=== PATIENT | male | born 1940 | race Caucasian/White ===

== ENCOUNTER → 2017-02-14 | Outpatient (CLI) | payer BC ==
[~2017-02-14] MED LIST: ASPI81TA28 PO; ATEN-173 PO; ATOR10TA82 PO; LEVO100T7 PO
== END | disposition home or self-care (01) ==
LOC: C.LABFOXMH 08:21
PROVIDERS: ATTEND Internal Medicine
DX: E03.9 Hypothyroidism, unspecified (principal); N62 Hypertrophy of breast

== ENCOUNTER → 2017-06-25 | Outpatient (CLI) | payer BC ==
[~2017-06-25] MED LIST changes: -ATOR10TA82 PO; +ATOR10TA88 PO
[2017-06-25 09:10] LABS: BLOOD UREA NITROGEN 13 mg/dl (7-18); CARBON DIOXIDE 23 mmol/L (21-32); CHLORIDE 106 mmol/L (98-107); CHOLESTEROL 144 mg/dl (0-200); CREATININE 0.88 mg/dl (0.60-1.40); GLUCOSE 97 mg/dl (70-99); POTASSIUM 4.3 mmol/L (3.5-5.1); SODIUM 138 mmol/L (136-145); TRIGLYCERIDES 111 mg/dl (0-150); VERY LOW DENSITY LIPOPROT CALC 22 mg/dl
[2017-06-25 09:14] LABS: ALB/GLOB RATIO 1.1 (0.9-2); ALKALINE PHOSPHATASE 74 U/L (45-117); ALT/SGPT 32 U/L (12-78); AST/SGOT 20 U/L (15-37); CHOLESTEROL/HDL RATIO 2.8; HDL CHOLESTEROL 52 mg/dl; LDL CHOLESTEROL CALCULATED 70 mg/dl
== END | disposition home or self-care (01) ==
LOC: C.LABFOXMH 08:40
PROVIDERS: ATTEND Internal Medicine
DX: E78.00 Pure hypercholesterolemia, unspecified (principal)

== ENCOUNTER → 2018-01-02 | Outpatient (CLI) | payer BC ==
[~2018-01-02] MED LIST changes: +ATOR10TA82 PO; -ATOR10TA88 PO
== END | disposition home or self-care (01) ==
LOC: C.LABFOXMH 07:46
PROVIDERS: ATTEND Internal Medicine Cardiovascular Disease
DX: E78.5 Hyperlipidemia, unspecified (principal)

== ENCOUNTER 2023-05-25 14:41 | Inpatient (IN) ==
--- NOTE | 2023-05-25 15:04 | Emergency Department Note ---
History of Present Illness General Chief complaint: Urinary Symptoms Stated complaint: URINARY SYMPTONS Time Seen by Provider: 05/25/23 14:48 History of Present Illness 83-year-old male presents emergency department complaint of possible urinary retention. Patient reportedly self catheterizes him and is having difficulty doing such today. There may be a slight fever reported and mild confusion. Patient is hard of hearing patient denies any suprapubic tenderness. Patient denies nausea vomiting diarrhea. There are no other complaints. No other mitigating or alleviating factors Home Medications Medication Instructions Recorded Confirmed Type atenolol 25 mg tablet 25 mg PO QPM 09/29/19 05/25/23 History atorvastatin 10 mg tablet 10 mg PO QPM 09/29/19 05/25/23 History cholecalciferol (vitamin D3) 50 2,000 units PO QPM 09/29/19 05/25/23 History mcg (2,000 unit) tablet levothyroxine 100 mcg tablet 100 mcg PO DAILYBB 09/29/19 05/25/23 History nitroglycerin 0.4 mg sublingual 0.4 mg sublingual Q5M PRN Chest 09/29/19 05/25/23 History tablet Pain aspirin 81 mg tablet,delayed 81 mg PO QPM 10/04/21 05/25/23 History release ferrous sulfate 325 mg (65 mg 325 mg PO QPM 10/04/21 05/25/23 History iron) tablet ascorbic acid (vitamin C) 500 mg 1,000 mg PO DAILY 08/09/22 05/25/23 History tablet vitamin B complex 1 tab PO DAILY 01/25/23 05/25/23 History Allergies Allergy/AdvReac Type Severity Reaction Status Date / Time Penicillins Allergy Severe High Temp Verified 05/25/23 17:44 sulfamethoxazole Allergy Intermediate RASH Verified 05/25/23 17:44 trimethoprim Allergy Intermediate RASH Verified 05/16/23 11:14 streptomycin Allergy Unknown CAN'T Verified 05/25/23 17:44 REMEMBER procaine [From Novocain] AdvReac Intermediate HIGH TEMP Verified 05/16/23 11:14 ciprofloxacin [From Cipro] AdvReac Mild Rash Verified 05/16/23 11:14 Past Med/Surg History Medical History Aortic valve insufficiency Ascending aorta dilatation Benign prostatic hyperplasia (BPH) with urinary urgency CAD (coronary artery disease) follows with Dr. Campos History of kidney stones [place] (hard of hearing) pt is VERY [place] and has great difficulty answering questions over the phone Hypertension Hypothyroidism Mixed conductive and sensorineural hearing loss of right ear with restricted hearing of left ear Surgical History History of lithotripsy History of open reduction and internal fixation (ORIF) procedure left leg History of removal of retained hardware Hx of heart artery stent 10/2001 with 1 stent placed--at [facility] Family History Father Heart disease Social History Smoking Status: Never smoker Second Hand Exposure: No; Do You Dip or Chew Tobacco: No; Hx Alcohol Use: No Hx Substance Use: No Preferred Language: Slovenian Communication Ability: Impaired Communication Ability Comment: very [place], have to yell Medicaid Plan Compliance Director Required: No Beliefs That Will Affect Care: Faith Faith Beliefs: Anglican marital status: Current Living Situation: Alone Current Living Situation Comment: lives independently at [facility] current occupational status: retired Feels Safe at Home: Yes Assistive Devices: Glasses and Hearing Aid - Bilateral Review of Systems A total of 10 systems reviewed and were otherwise negative Physical Exam Vital Signs Vital Signs - 24 hr 05/25/23 14:46 Temperature 36.8 C Temperature Source Oral Pulse Rate 83 Respiratory Rate 18 Blood Pressure 141/71 H Blood Pressure Mean 94 Blood Pressure Position Sitting Pulse Oximetry 94 Oxygen Delivery Method Room Air Sepsis Recent Fever Within 48 Hours No Sepsis New/Unexplained Change in Mental Status No Sepsis Action Taken by Nursing No Action Required GENERAL: Patient is awake alert in no acute distress patient is resting comfortably and showing no signs of anxiety; patient is hard of hearing EYES: The conjunctivae are clear. The pupils are round and reactive. HEAD NC/AT EARS, NOSE, MOUTH AND THROAT: The nose is without any evidence of any deformity. Mucous membranes are moist. Tongue is midline. NECK: The neck is nontender and supple. RESPIRATORY: Normal respiratory effort is noted there is no evidence of wheezing rhonchi or rales CARDIOVASCULAR: Regular rate and rhythm noted there no murmurs rubs or gallops normal S1 normal S2. GASTROINTESTINAL: The abdomen is soft. Abdomen is nontender. No suprapubic tenderness exam with nurse at bedside the bladder scan was 108 mL BACK: No midline tenderness or or step-off noted range of motion in flexion extension as well as rotation no signs of muscle spasm noted MUSCULOSKELETAL/EXTREMITIES: There is no evidence of gross deformity full range of motion is noted in the hips and shoulders. SKIN: There is no obvious evidence of any rash. There are no petechiae, pallor or cyanosis noted. NEUROLOGIC: Patient is awake alert and oriented x3 strength is symmetric Course Reevaluation(s) Reevaluation #1: Patient was started on IV fluids, IV Rocephin. Time: 17:59 Consultations Consultation #1: [facility] with the [facility] Time: 17:00 Administered Medications Parenteral Electrolytes (Plasma-Lyte A Ph 7.4) 1,000 mls @ 100 mls/hr IV .Q10H DOMINGO Stop: 05/26/23 02:14 Last Admin: 05/25/23 16:47 Dose: 100 mls/hr Documented By: CHAZ Discontinued Medications Acetaminophen (Acetaminophen 325 Mg Tab) 650 mg PO NOW STA Stop: 05/25/23 16:40 Last Admin: 05/25/23 16:48 Dose: Not Given Documented By: CHAZ Ceftriaxone Sodium (Rocephin) 2,000 mg in 70 mls @ 140 mls/hr IV NOW STA Stop: 05/25/23 16:27 Last Infusion: 05/25/23 16:50 Dose: 0 mls/hr Documented By: Admin: 05/25/23 16:21 Dose: 140 mls/hr Documented By: CHAZ Medical Decision Making Medical Records Attestation: I reviewed the patient's medical records. Home Medications Current Medication List: was personally reviewed by me Laboratory Data Attestation: I reviewed the patient's lab results. Labs interpreted by me patient has a leukocytosis, patient has a urine that is positive for infection 05/25/23 15:09 05/25/23 15:09 Lab Results 05/25/23 05/25/23 05/25/23 Range/Units 15:09 15:09 15:09 WBC 19.94 H (4.8-10.8) K/ul RBC 4.49 L (4.70-6.10) M/uL Hgb 14.5 (14.0-18.0) g/dl Hct 41.6 L (42.0-52.0) % MCV 92.7 (80.0-100.0) fL MCH 32.3 (25.0-34.0) pg MCHC 34.9 (32.0-36.0) g/dL RDW Std Deviation 42.0 (36.4-46.3) fL RDW Coeff of Chris 12.3 (11.5-14.5) % Plt Count 328 (130-400) K/uL MPV 8.4 L (9.4-12.4) fL Immature Gran % (Auto) 0.8 % Neut % (Auto) 89.8 % Lymph % (Auto) 4.2 % [place] % (Auto) 4.9 % Eos % (Auto) 0.0 % Baso % (Auto) 0.3 % Neut # (Auto) 17.93 H (1.40-6.50) K/uL Lymph # (Auto) 0.84 L (1.20-3.40) K/uL [place] # (Auto) 0.97 H (0.11-0.59) K/uL Eos # (Auto) 0.00 (0.00-0.50) K/uL Baso # (Auto) 0.05 (0.00-0.20) K/uL Immature Gran # (Auto) 0.15 (0.01-0.20) K/uL Sodium 131 L (136-145) mmol/L Potassium 3.9 (3.5-5.1) mmol/L Chloride 99 (98-107) mmol/L Carbon Dioxide 25 (21-32) mmol/L Anion Gap 7 (3-11) BUN 16 (6-23) mg/dl Creatinine 1.00 (0.6-1.4) mg/dl Est Cr Clr Drug Dosing Not Reportable Est GFR ( Amer) 79.2 ml/min Est GFR (Non-Af Amer) 68.3 ml/min BUN/Creatinine Ratio 16.0 (10-20) Glucose 122 H (70-99(Fasting)) mg/dl Lactate (0.4-2.0) mmol/L Calcium 9.2 (8.6-10.3) mg/dl Magnesium 2.0 (1.7-2.4) mg/dl Total Bilirubin 0.8 (0.2-1.0) mg/dl Direct Bilirubin 0.1 (0-0.2) mg/dl AST 18 (13-39) U/L ALT 22 (7-52) U/L Alkaline Phosphatase 69 (34-104) U/L Total Protein 7.6 (6.0-8.3) gm/dl Albumin 3.9 (3.4-5.0) gm/dl Procalcitonin 0.09 (0-0.5) ng/ml 05/25/23 Range/Units 15:23 WBC (4.8-10.8) K/ul RBC (4.70-6.10) M/uL Hgb (14.0-18.0) g/dl Hct (42.0-52.0) % MCV (80.0-100.0) fL MCH (25.0-34.0) pg MCHC (32.0-36.0) g/dL RDW Std Deviation (36.4-46.3) fL RDW Coeff of Chris (11.5-14.5) % Plt Count (130-400) K/uL MPV (9.4-12.4) fL Immature Gran % (Auto) % Neut % (Auto) % Lymph % (Auto) % [place] % (Auto) % Eos % (Auto) % Baso % (Auto) % Neut # (Auto) (1.40-6.50) K/uL Lymph # (Auto) (1.20-3.40) K/uL [place] # (Auto) (0.11-0.59) K/uL Eos # (Auto) (0.00-0.50) K/uL Baso # (Auto) (0.00-0.20) K/uL Immature Gran # (Auto) (0.01-0.20) K/uL Sodium (136-145) mmol/L Potassium (3.5-5.1) mmol/L Chloride (98-107) mmol/L Carbon Dioxide (21-32) mmol/L Anion Gap (3-11) BUN (6-23) mg/dl Creatinine (0.6-1.4) mg/dl Est Cr Clr Drug Dosing Est GFR ( Amer) ml/min Est GFR (Non-Af Amer) ml/min BUN/Creatinine Ratio (10-20) Glucose (70-99(Fasting)) mg/dl Lactate 2.0 (0.4-2.0) mmol/L Calcium (8.6-10.3) mg/dl Magnesium (1.7-2.4) mg/dl Total Bilirubin (0.2-1.0) mg/dl Direct Bilirubin (0-0.2) mg/dl AST (13-39) U/L ALT (7-52) U/L Alkaline Phosphatase (34-104) U/L Total Protein (6.0-8.3) gm/dl Albumin (3.4-5.0) gm/dl Procalcitonin (0-0.5) ng/ml Imaging Data Attestation: I personally reviewed and interpreted this imaging study as follows: My Impression: Chest x-ray interpreted by me negative for infiltrate Radiologist's Impression: Chest X-Ray 05/25/23 14:48 XR chest 1V portable HISTORY: 83 years-old Male Sepsis acute sepsis COMPARISON: 04/18/2023 TECHNIQUE: AP view chest FINDINGS: Cardiac silhouette is enlarged. Hiatal hernia. No pneumothorax, pleural effusion, airspace consolidation or pulmonary edema. Emphysema with chronic interstitial coarsening. Degenerative changes of the shoulders and spine. Eventration of the right hemidiaphragm. IMPRESSION: 1. Cardiomegaly without acute process. 2. Hiatal hernia. ACT 112: Negative or not required by law. The above report was generated using voice recognition software. It may contain grammatical, syntax or spelling errors. Electronically signed by: Iam Dainel M.D. 05/25/2023 3:42 PM ECG Data Attestation: I personally reviewed and interpreted this ECG as follows: Additional Comments: EKG interpreted by me normal sinus rhythm rate of 81, normal intervals normal axis, no obvious ST segment elevation or depression Telemetry was ordered by me interpreted as normal sinus rhythm rate of 81 MDM Narrative Medical decision making differential diagnosis includes urinary tract infection, urinary retention, sepsis, dehydration, electrolyte abnormality Plan is to check labs, bladder scan, sepsis protocol External medical records were reviewed by me Patient was started on IV fluids, IV Rocephin, patient is likely bacteremic due to a urinary tract infection. Patient is not in septic shock at the time of admission Impression & Plan UTI (urinary tract infection), Sepsis Discharge Plan Visit Data Chief Complaint: Urinary Symptoms Stated Complaint: URINARY SYMPTONS ED Provider: Drew Olivas Discharge Problem: UTI (urinary tract infection), Sepsis Patient Disposition: Admitted As Inpatient Discharge Instructions Interventions: ED Discharge Assessment Last Done: 05/25/23 17:06
[2023-05-25 15:33] LABS: Basophils # (auto) 0.05 K/uL (0.00-0.20); Basophils % (auto) 0.3 %; Hematocrit (blood only) 41.6 % (42.0-52.0); Hemoglobin 14.5 g/dl (14.0-18.0); Immature Granulocytes # (auto) 0.15 K/uL (0.01-0.20); Immature Granulocytes % (auto) 0.8 %; Lymphocytes # (auto) 0.84 K/uL (1.20-3.40); Lymphocytes % (auto) 4.2 %; Mean Corpuscular Hemoglobin 32.3 pg (25.0-34.0); Mean Corpuscular Hgb Conc 34.9 g/dL (32.0-36.0); Mean Corpuscular Volume 92.7 fL (80.0-100.0); Mean Platelet Volume 8.4 fL (9.4-12.4); Monocytes # (auto) 0.97 K/uL (0.11-0.59); Monocytes % (auto) 4.9 %; Neutrophils # (auto) 17.93 K/uL (1.40-6.50); Neutrophils % (auto) 89.8 %; Platelet Count 328 K/uL (130-400); RDW Coefficient of Variation 12.3 % (11.5-14.5); Red Blood Count 4.49 M/uL (4.70-6.10); White Blood Count 19.94 K/ul (4.8-10.8)
--- NOTE | 2023-05-25 15:43 | XRay Report ---
XR chest 1V portable HISTORY: 83 years-old Male Sepsis acute sepsis COMPARISON: 04/18/2023 TECHNIQUE: AP view chest FINDINGS: Cardiac silhouette is enlarged. Hiatal hernia. No pneumothorax, pleural effusion, airspace consolidat ion or pulmonary edema. Emphysema with chronic interstitial coarsening. Degenerative changes of the s houlders and spine. Eventration of the right hemidiaphragm. IMPRESSION: 1. Cardiomegaly without acute process. 2. Hiatal hernia. ACT 112: Negative or not required by law. The above report was generated using voice recognition software. It may contain grammatical, syntax o r spelling errors. Electronically signed by: Iam Daniel M.D. 05/25/2023 3:42 PM
[2023-05-25 15:48] LABS: Appearance Urine Turbid (Clear); Bacteria Urine Automated 1+ (Negative); Bilirubin Urine Negative (Negative); Blood Urine 3+ (Negative); Color Urine Yellow; Glucose Urine UA Negative (Negative); Ketones Urine Negative (Negative); Leukocyte Esterase Urine 3+ (Negative); Nitrite Urine Positive (Negative); Protein Urine 1+ (Negative); RBC Urine Automated >30 /hpf (0-4); Specific Gravity Urine 1.017 (1.000-1.030); Urobilinogen Urine Negative (Negative); WBC Urine Automated >30 /hpf (0-5); pH Urine 5.5 (4.5-7.5)
[2023-05-25 15:49] LABS: Alanine Aminotransferase 22 U/L (7-52); Albumin Level 3.9 gm/dl (3.4-5.0); Alkaline Phosphatase 69 U/L (34-104); Anion Gap 7 (3-11); Aspartate Aminotransferase 18 U/L (13-39); Bilirubin Direct 0.1 mg/dl (0-0.2); Bilirubin,Total 0.8 mg/dl (0.2-1.0); Blood Urea Nitrogen 16 mg/dl (6-23); Calcium 9.2 mg/dl (8.6-10.3); Carbon Dioxide 25 mmol/L (21-32); Chloride 99 mmol/L (98-107); Est GFR (African American) 79.2 ml/min; Est GFR (Non-African American) 68.3 ml/min; Glucose 122 mg/dl (70-99(Fasting)); Potassium 3.9 mmol/L (3.5-5.1); Sodium 131 mmol/L (136-145); Total Protein 7.6 gm/dl (6.0-8.3)
[2023-05-25] MEDS ORDERED: cefTRIAXone SODIUM 2,000 MG/70 ML BAG IV STA (15:58)
--- NOTE | 2023-05-25 16:12 | History & Physical Report ---
Date of Service May 25, 2023 Assessment & Plan (1) UTI (urinary tract infection): Plan: -Admit to med/surge -Currently stable and oriented -Has been having ongoing left scrotal/testicle swelling/pain over the past 3 days. -Also experiencing increased difficulty straight cathing and hematuria -UA today appears infected -No hx of resistant UTI's -S/P one dose of ceftriaxone in the ED, will continue this for now -Will give 1L Plasmalyte as he appears dehydrated -Will obtain scrotal US for further evaluation -Monitor urine/blood cultures -SQ lovenox for DVT PPX -HH diet -AM CBC, BMP, Mag (2) Scrotal swelling: Plan: -Left scrotal/testicular swelling, erythema, and tenderness -Patient is high risk for infection due to having to self cath -Continue ceftriaxone for now -Will obtain scrotal US for further evaluation, if abnormal will consult Urology to follow -PRN bladder scans and straight cath -No MANAS at this time, will hold additional imaging for now (3) Benign prostatic hyperplasia (BPH) with urinary urgency: Plan: -Requires self cathing at home -Bladder scan in the ED showed 108 cc -Continue prn bladder scan and straight caths -Will hold flomax/finasteride for now, if he starts to retain then would consider starting (4) Hyponatremia: Plan: -Sodium at 131 today -Patient is asymptomatic -Patient appears dehydrated, likely the main cause along with his acute infection -Follow am labs after IV fluids overnight (5) Hypertension: Plan: -Stable -Continue atenolol (6) Anemia: Plan: -Stable -Continue ferrous sulfate (7) Hypercholesterolemia: Plan: -Continue statin (8) CAD (coronary artery disease): Plan: -Continue aspirin Plan The patient was discussed with Dr. Raymond at the time of the admission History of Present Illness Chief Complaint: Urinary symptoms Primary Care Provider: Noemi Bernardo is an 83 year old male with a PMH significant for BPH with chronic urinary retention (Straight cath's), HTN, CAD, hypothyroidism, anemia who presented to the [facility] ED on 05/25 from [facility] due to difficulty cathing and UTI symptoms. In the ED vitals were stable. Labs were significant for a leukocytosis of 19 with left shift of 17, sodium of 131, and UA concerning for UTI. Chest xray showed cardiomegaly without acute process. Prior to admission the patient was given a dose of Ceftriaxone. At the time of the exam the patient was resting in bed in no acute distress. He states that he has been having left scrotal/testicular pain for the past 3 days. This pain has made straight cathing himself difficult due to the pain. He has been very cold but has not taken his temperature. He denies recent fever, chills, chest pain, SOB, abd pain, nausea, vomiting, diarrhea, dysuria, melena, diarrhea, LE swelling, and recent trauma. He has noted hematuria over the past 3 days when using his catheters. He has no other complaints at this time. We discussed code status, he wishes to be a full code and for his POA, David Flores to make medical decisions for him if he cannot make them himself. Please refer to Dr. Raymond's attestation for any changes to the treatment plan Allergies Allergy/AdvReac Type Severity Reaction Status Date / Time Penicillins Allergy Severe High Temp Verified 05/25/23 17:44 sulfamethoxazole Allergy Intermediate RASH Verified 05/25/23 17:44 trimethoprim Allergy Intermediate RASH Verified 05/16/23 11:14 streptomycin Allergy Unknown CAN'T Verified 05/25/23 17:44 REMEMBER procaine [From Novocain] AdvReac Intermediate HIGH TEMP Verified 05/16/23 11:14 ciprofloxacin [From Cipro] AdvReac Mild Rash Verified 05/16/23 11:14 Home Medications Medication Instructions Recorded Confirmed Type atenolol 25 mg tablet 25 mg PO QPM 09/29/19 05/25/23 History atorvastatin 10 mg tablet 10 mg PO QPM 09/29/19 05/25/23 History cholecalciferol (vitamin D3) 50 2,000 units PO QPM 09/29/19 05/25/23 History mcg (2,000 unit) tablet levothyroxine 100 mcg tablet 100 mcg PO DAILYBB 09/29/19 05/25/23 History nitroglycerin 0.4 mg sublingual 0.4 mg sublingual Q5M PRN Chest 09/29/19 05/25/23 History tablet Pain aspirin 81 mg tablet,delayed 81 mg PO QPM 10/04/21 05/25/23 History release ferrous sulfate 325 mg (65 mg 325 mg PO QPM 10/04/21 05/25/23 History iron) tablet ascorbic acid (vitamin C) 500 mg 1,000 mg PO DAILY 08/09/22 05/25/23 History tablet vitamin B complex 1 tab PO DAILY 01/25/23 05/25/23 History Past Med/Surg History Medical History Aortic valve insufficiency Ascending aorta dilatation Benign prostatic hyperplasia (BPH) with urinary urgency CAD (coronary artery disease) follows with Dr. Campos History of kidney stones [place] (hard of hearing) pt is VERY [place] and has great difficulty answering questions over the phone Hypertension Hypothyroidism Mixed conductive and sensorineural hearing loss of right ear with restricted hearing of left ear Surgical History History of lithotripsy History of open reduction and internal fixation (ORIF) procedure left leg History of removal of retained hardware Hx of heart artery stent 10/2001 with 1 stent placed--at [facility] Family History Father Heart disease Social History Smoking Status: Never smoker Second Hand Exposure: No; Do You Dip or Chew Tobacco: No; Hx Alcohol Use: No Hx Substance Use: No Preferred Language: Zambian Communication Ability: Impaired Communication Ability Comment: very [place], have to yell Dairy Technician Required: No Beliefs That Will Affect Care: None marital status: Current Living Situation: Alone Current Living Situation Comment: lives independently at [facility] current occupational status: retired Feels Safe at Home: Yes Safety Concerns: Feels Safe At This Time Assistive Devices: Glasses and Hearing Aid - Bilateral Physical Exam Physical Exam: Physical Exam: General: In no acute distress, stated age, poor hygiene, non-toxic appearing HEENT: Normocephalic, atraumatic, no scleral icterus, pupils around round, symmetrical, and reactive to light, moist mucus membranes, trachea midline, no thyromegaly Chest/Pulm: No respiratory distress, symmetrical chest expansion, clear breath sounds throughout Cardiac: RRR, no murmurs noted Abdomen: Negative for ascites and bruising, normoactive bowel sounds, soft, non-tender to palpation throughout : Left testicle is currently swollen and tender to palpation, right testicle is WNL and non-tender, erythema of the scrotum is noted without wound or drainage, no drainage from the ureteral meatus Musculoskeletal: Symmetrical and without signs of acute trauma, upper and lower extremities with full ROM, no atrophy, spasticity, or flaccidity Extremities: Radial, dorsalis pedis, and posterior tibial pulses are intact and symmetrical, no edema noted in the BL LE's Skin: Warm, dry, no rashes , lesions, or scars noted Neuro: Alert and oriented to person, place, month, year, and president, no focal defects,no tremors noted Psych: No acute distress, calm and cooperative during the exam Results & Data Results & Data Vital Signs (Past 12 Hours) Vital Signs Temp Pulse Resp BP Pulse Ox O2 Del Method 05/25/23 14:46 36.8 C 83 18 141/71 H 94 Room Air Laboratory Results Abnormal lab results 05/25/23 05/25/23 05/25/23 Range/Units 15:09 15:09 Unknown WBC 19.94 H (4.8-10.8) K/ul RBC 4.49 L (4.70-6.10) M/uL Hct 41.6 L (42.0-52.0) % MPV 8.4 L (9.4-12.4) fL Neut # (Auto) 17.93 H (1.40-6.50) K/uL Lymph # (Auto) 0.84 L (1.20-3.40) K/uL [place] # (Auto) 0.97 H (0.11-0.59) K/uL Sodium 131 L (136-145) mmol/L Glucose 122 H (70-99(Fasting)) mg/dl Urine Appearance Turbid A (Clear) Urine Protein 1+ H (Negative) Urine Blood 3+ H (Negative) Urine Nitrite Positive A (Negative) Ur Leukocyte Esterase 3+ H (Negative) Urine WBC (Auto) >30 H (0-5) /hpf Urine RBC (Auto) >30 H (0-4) /hpf U Epithel Cells (Auto) 5-10 H (0-5) /lpf Urine Bacteria (Auto) 1+ H (Negative) Diagnostic Findings Chest X-Ray 05/25/23 14:48 XR chest 1V portable HISTORY: 83 years-old Male Sepsis acute sepsis COMPARISON: 04/18/2023 TECHNIQUE: AP view chest FINDINGS: Cardiac silhouette is enlarged. Hiatal hernia. No pneumothorax, pleural effusion, airspace consolidation or pulmonary edema. Emphysema with chronic interstitial coarsening. Degenerative changes of the shoulders and spine. Eventration of the right hemidiaphragm. IMPRESSION: 1. Cardiomegaly without acute process. 2. Hiatal hernia. ACT 112: Negative or not required by law. The above report was generated using voice recognition software. It may contain grammatical, syntax or spelling errors. Electronically signed by: Iam Daniel M.D. 05/25/2023 3:42 PM ECG Additional Comments: Normal sinus rhythm Normal ECG When compared with ECG of 18-APR-2023 08:20, Nonspecific T wave abnormality now evident in Inferior leads T wave amplitude has decreased in Anterior leads Code Status & VTE Plan Code Status Full code VTE Prophylaxis Plan VTE Prophylaxis will be ordered: Yes Supervising Physician Co-Signing Physician Notes I personally saw and examined the patient. I verified all benitez points and agree with Kian Hughes PA-C with the following exceptions and/or additions: 83 year old male who self catheterizes presents to the ER with left testicle swelling, hematuria for the last 3 days. No fever or chills prior to today. O/E HS RRR, no murmurs, Chest CTAB, Abdo SNT, no CVA tenderness, left testicle epididymal swelling and hydrocele palpated with mild pain A/P Acute UTI - suspected acute epididymitis with US pending. Ceftriaxone (patient unable to take fluoroquinolones due to allergy with rash, no Hx pseudomonas). Follow up urine and blood cultures. Patient wishes to continue to self cath q8h. Patient is not sexually active therefore deferred chlamydia/gonorrhea testing. PG Care Time/CCT Total # of Minutes Spent Total Time Spent with Patient: Total time spent is greater than 50% in coordination of care (as documented) at patient's floor/unit and/or counseling patient: [place] [address] INT INP/OBS CARE 2/55MIN Patient Type Established Medical Decision Making Moderate Complexity Diagnoses UTI (urinary tract infection) N39.0 Scrotal swelling N50.89 Benign prostatic hyperplasia (BPH) with urinary urgency N40.1; R39.15 Hyponatremia E87.1 Hypertension I10 Anemia D64.9 Hypercholesterolemia E78.00 CAD (coronary artery disease) I25.10
[2023-05-25] MEDS ORDERED: PLASMA-LYTE A 1,000 ML IV SCH (16:15)
[2023-05-25] MEDS: ACETAMINOPHEN 325 MG TAB PO STA ×2 (16:47→16:48)
[2023-05-25] MEDS ORDERED: ACETAMINOPHEN 325 MG TAB PO PRN (17:54)
--- NOTE | 2023-05-25 18:48 | Electrocardiogram Report ---
Test Reason : Blood Pressure : / mmHG Vent. Rate : 081 BPM Atrial Rate : 081 BPM P-R Int : 168 ms QRS Dur : 084 ms QT Int : 366 ms P-R-T Axes : 032 -14 014 degrees QTc Int : 425 ms Normal sinus rhythm Normal ECG When compared with ECG of 18-APR-2023 08:20, Nonspecific T wave abnormality now evident in Inferior leads T wave amplitude has decreased in Anterior leads Confirmed by Jaguar Swain ([id number]) on 05/25/2023 6:48:50 PM Referred By: Confirmed By:Kamarn Swain
[2023-05-25] MEDS: ATENOLOL 25 MG TABLET PO SCH (20:50)
[2023-05-25] MEDS: ENOXAPARIN INJ 40 MG/0.4 ML SYR SQ SCH (20:50)
[2023-05-25] MEDS: ASPIRIN 81 MG ECTAB PO SCH (20:50)
--- NOTE | 2023-05-25 21:40 | Ultrasound Report ---
Exam(s): US SCROTAL EXAM: US Scrotum CLINICAL HISTORY: Reason for exam: UTI, swollen/pain left testicle. TECHNIQUE: Real-time ultrasound of the scrotum with color Doppler and image documentation. COMPARISON: No relevant prior studies available. FINDINGS: Right testicle: Unremarkable. No mass. No torsion. Left testicle: Hyperemia to the left testicle with complex left hydrocele. Left testicle measures 3.2 x 3.8 x 3.6 cm. No torsion. Epididymides: Enlarged right epididymis with hyperemia. Scrotum: Right scrotum measures 3.2 x 4.2 x 3.0 cm. Small right hydrocele. IMPRESSION: Left epididymitis and orchitis with complex hydrocele. Electronically signed by: Rashel Nobles M.D. 05/25/23 21:39 PM
[2023-05-25] MEDS ORDERED: IBUPROFEN 200 MG TAB PO PRN (23:09)
[2023-05-26] MEDS: LEVOTHYROXINE SODIUM 100 MCG TABLET PO SCH (05:12)
[2023-05-26 06:58] LABS: Hematocrit (blood only) 36.6 % (42.0-52.0); Hemoglobin 13.1 g/dl (14.0-18.0); Mean Corpuscular Hemoglobin 32.3 pg (25.0-34.0); Mean Corpuscular Hgb Conc 35.8 g/dL (32.0-36.0); Mean Corpuscular Volume 90.4 fL (80.0-100.0); Mean Platelet Volume 8.4 fL (9.4-12.4); Platelet Count 298 K/uL (130-400); RDW Coefficient of Variation 12.3 % (11.5-14.5); Red Blood Count 4.05 M/uL (4.70-6.10); White Blood Count 27.62 K/ul (4.8-10.8)
[2023-05-26 07:17] LABS: Basophils % (auto) 0.4 %; Eosinophils # (auto) 0.01 K/uL (0.00-0.50); Immature Granulocytes # (auto) 0.32 K/uL (0.01-0.20); Immature Granulocytes % (auto) 1.2 %; Lymphocytes # (auto) 1.55 K/uL (1.20-3.40); Lymphocytes % (auto) 5.6 %; Monocytes # (auto) 1.84 K/uL (0.11-0.59); Monocytes % (auto) 6.7 %; Neutrophils % (auto) 86.1 %
[2023-05-26 07:18] LABS: BUN Creatinine Ratio 16.7 (10-20); Calcium 8.7 mg/dl (8.6-10.3); Creatinine Clr Calc Pharmacy 55.1 ml/min; Est GFR (African American) 83.2 ml/min; Est GFR (Non-African American) 71.8 ml/min; Potassium 3.5 mmol/L (3.5-5.1)
--- NOTE | 2023-05-26 08:21 | Hospitalist Progress Note ---
Date of Service May 26, 2023 Assessment & Plan (1) UTI (urinary tract infection): Plan: -Admit to med/surge -Has been having ongoing left scrotal/testicle swelling/pain over the past 3 days with increased difficulty straight cathing and hematuria -UA appears infected with no hx resistant UTIs, given Rocephin in ER and 1L plasmalyte for dehydration 05/26 Leukocytosis on admission with possible slight fever per ER note with reported o ngoing L scrotal swelling/pain over the past 3 days with difficulty straight cath and hematuria. Seen recently in Urology office 05/24 for voiding trial and was apparently taught with 16fr coude for CIC to get through until this upcoming Sunday Exam concerning for epididymitis/orchitis, not sexually active Continues on Ceftriaxone IV WBC elevated to 27.6k, temp up to 39.1C overnight and has been afebrile this morning Scrotal US obtained -- Left epididymitis and orchitis with complex hydrocele. Added IV Doxycycline this morning given such and coverage for epididymitis/orchitis as below Messaged Urology, consult placed this morning Olivera placed, continue such Monitor urine/blood cultures Urine cx w/ gram negative bacilli on preliminiary -- monitor Renal function stable PT/OT consults to be undertaken DVT Proph: Lovenox SQ Monitor labs/cultures (2) Epididymitis: Plan: Scrotal US w/ Left epididymitis and orchitis with complex hydrocele. Urology consulted, messaged Dr Landrum this morning On ceftriaxone, added IV doxy Monitor cx Blood cultures pending Olivera placed, continue Elevation/ice packs as tolerated (3) Scrotal swelling: Plan: 2nd to above Left scrotal/testicular swelling, erythema, and tenderness with epididymitis/orchitis on scrotal US Abx/Urology consulted as above, now with olivera and to be maintained Urology to follow as above (4) Benign prostatic hyperplasia (BPH) with urinary urgency: Plan: Had voiding trial in office this past week, bladder scan in ER with 108cc Now with olivera and can hold flomax/finasteride consider resuming finasteride tomorrow, can hold off flomax with olivera unless otherwise directed by urology (5) Hyponatremia: Plan: Sodium at 131 , suspected 2nd to dehydration IVF on admission, repeat 132. reports feeling better -- continue to encourage PO intake Will repeat TSH w/ AM labs, consider additional IVF if needed Can consider urine na/etc if remains low (6) Hypertension: Plan: Stable Continue atenolol (7) Anemia: Plan: Stable -Continue ferrous sulfate hgb around baseline (8) Hypercholesterolemia: Plan: -Continue statin (9) CAD (coronary artery disease): Plan: -Continue aspirin Plan continued inpatient stay monitor cultures/exam urology consulted/following, olivera placed this morning will consult PT/OT (from [facility]) Admission and Anticipated Discharge Date Admission Date: May 25, 2023 Supervising Physician Co-Signing Physician Notes The patient was not seen by me. The chart was reviewed. Case discussed with DUKE Garza. Agree with assessment and plan Subjective Urology consulted/messaged given scrotal US findings, added IV Doxycycline. Evaluated this morning, Olivera catheter placement by nursing. Discussed continued IV abx. He reports he is feeling better this morning, no further fever/chill symptoms. Denies chest pain/shortness of breath. Discussed continuing olivera catheter placement and management per urology but would continue for now given issues with self catheterization. Not sexually active per admission report. Questions/concerns addressed at this time. Physical Exam Physical Exam: General: WD/WN male sitting up in bed, NAD, obtained hearing aides for exam HEENT: head normocephalic, atraumatic, mmm, trachea midline Resp: CTA, diminished in the bases, no w/c/r, on room air CV: RRR, faint murmur, no pitting edema/calf tenderness GI +BS, soft/NT olivera in place, in inguinal lymphadenopathy RIGHT scrotum/testis appearing normal, LEFT with significant swollen to size of baseball along with some erythema of the skin, no obvious abscess able to be appreciated, tenderness to palpation no surrounding skin erythema to suggest [facility] MSK/Neuro: no focal deficits, no slurred speech, answering questions appropriately Psych; Alert, oriented to person/place/time Results & Data Results & Data Vital Signs (Past 12 Hours) Vital Signs Temp Pulse Resp BP Pulse Ox O2 Del Method 05/26/23 05:13 37.1 C 05/26/23 02:00 37.7 C H 05/25/23 23:05 37.7 C H 05/25/23 20:43 39.1 C H 05/25/23 20:43 93 Room Air 05/25/23 20:41 38.9 C H 80 18 132/68 92 Room Air Laboratory Results 05/26/23 05/26/23 05/25/23 Range/Units 06:25 06:25 Unknown WBC 27.62 H (4.8-10.8) K/ul RBC 4.05 L (4.70-6.10) M/uL Hgb 13.1 L (14.0-18.0) g/dl Hct 36.6 L (42.0-52.0) % MCV 90.4 (80.0-100.0) fL MCH 32.3 (25.0-34.0) pg MCHC 35.8 (32.0-36.0) g/dL RDW Std Deviation 41.0 (36.4-46.3) fL RDW Coeff of Chris 12.3 (11.5-14.5) % Plt Count 298 (130-400) K/uL MPV 8.4 L (9.4-12.4) fL Immature Gran % (Auto) 1.2 % Neut % (Auto) 86.1 % Lymph % (Auto) 5.6 % [place] % (Auto) 6.7 % Eos % (Auto) 0.0 % Baso % (Auto) 0.4 % Neut # (Auto) 23.80 H (1.40-6.50) K/uL Lymph # (Auto) 1.55 (1.20-3.40) K/uL [place] # (Auto) 1.84 H (0.11-0.59) K/uL Eos # (Auto) 0.01 (0.00-0.50) K/uL Baso # (Auto) 0.10 (0.00-0.20) K/uL Immature Gran # (Auto) 0.32 H (0.01-0.20) K/uL Sodium 132 L (136-145) mmol/L Potassium 3.5 (3.5-5.1) mmol/L Chloride 102 (98-107) mmol/L Carbon Dioxide 24 (21-32) mmol/L Anion Gap 6 (3-11) BUN 16 (6-23) mg/dl Creatinine 0.96 (0.6-1.4) mg/dl Est Cr Clr Drug Dosing 55.1 Est GFR ( Amer) 83.2 ml/min Est GFR (Non-Af Amer) 71.8 ml/min BUN/Creatinine Ratio 16.7 (10-20) Glucose 114 H (70-99(Fasting)) mg/dl Lactate (0.4-2.0) mmol/L Calcium 8.7 (8.6-10.3) mg/dl Magnesium (1.7-2.4) mg/dl Total Bilirubin (0.2-1.0) mg/dl Direct Bilirubin (0-0.2) mg/dl AST (13-39) U/L ALT (7-52) U/L Alkaline Phosphatase (34-104) U/L Total Protein (6.0-8.3) gm/dl Albumin (3.4-5.0) gm/dl Procalcitonin (0-0.5) ng/ml Urine Color Yellow Urine Appearance Turbid A (Clear) Urine pH 5.5 (4.5-7.5) Ur Specific [place] 1.017 (1.000-1.030) Urine Protein 1+ H (Negative) Urine Glucose (UA) Negative (Negative) Urine Ketones Negative (Negative) Urine Blood 3+ H (Negative) Urine Nitrite Positive A (Negative) Urine Bilirubin Negative (Negative) Urine Urobilinogen Negative (Negative) Ur Leukocyte Esterase 3+ H (Negative) Urine WBC (Auto) >30 H (0-5) /hpf Urine RBC (Auto) >30 H (0-4) /hpf U Hyaline Cast (Auto) 1-5 (0-5) /lpf U Epithel Cells (Auto) 5-10 H (0-5) /lpf Urine Bacteria (Auto) 1+ H (Negative) SARS-CoV-2, RNA, NAAT (NEGATIVE) 05/25/23 05/25/23 05/25/23 Range/Units 19:32 15:23 15:09 WBC (4.8-10.8) K/ul RBC (4.70-6.10) M/uL Hgb (14.0-18.0) g/dl Hct (42.0-52.0) % MCV (80.0-100.0) fL MCH (25.0-34.0) pg MCHC (32.0-36.0) g/dL RDW Std Deviation (36.4-46.3) fL RDW Coeff of Chris (11.5-14.5) % Plt Count (130-400) K/uL MPV (9.4-12.4) fL Immature Gran % (Auto) % Neut % (Auto) % Lymph % (Auto) % [place] % (Auto) % Eos % (Auto) % Baso % (Auto) % Neut # (Auto) (1.40-6.50) K/uL Lymph # (Auto) (1.20-3.40) K/uL [place] # (Auto) (0.11-0.59) K/uL Eos # (Auto) (0.00-0.50) K/uL Baso # (Auto) (0.00-0.20) K/uL Immature Gran # (Auto) (0.01-0.20) K/uL Sodium (136-145) mmol/L Potassium (3.5-5.1) mmol/L Chloride (98-107) mmol/L Carbon Dioxide (21-32) mmol/L Anion Gap (3-11) BUN (6-23) mg/dl Creatinine (0.6-1.4) mg/dl Est Cr Clr Drug Dosing Est GFR ( Amer) ml/min Est GFR (Non-Af Amer) ml/min BUN/Creatinine Ratio (10-20) Glucose (70-99(Fasting)) mg/dl Lactate 2.0 (0.4-2.0) mmol/L Calcium (8.6-10.3) mg/dl Magnesium (1.7-2.4) mg/dl Total Bilirubin (0.2-1.0) mg/dl Direct Bilirubin (0-0.2) mg/dl AST (13-39) U/L ALT (7-52) U/L Alkaline Phosphatase (34-104) U/L Total Protein (6.0-8.3) gm/dl Albumin (3.4-5.0) gm/dl Procalcitonin 0.09 (0-0.5) ng/ml Urine Color Urine Appearance (Clear) Urine pH (4.5-7.5) Ur Specific [place] (1.000-1.030) Urine Protein (Negative) Urine Glucose (UA) (Negative) Urine Ketones (Negative) Urine Blood (Negative) Urine Nitrite (Negative) Urine Bilirubin (Negative) Urine Urobilinogen (Negative) Ur Leukocyte Esterase (Negative) Urine WBC (Auto) (0-5) /hpf Urine RBC (Auto) (0-4) /hpf U Hyaline Cast (Auto) (0-5) /lpf U Epithel Cells (Auto) (0-5) /lpf Urine Bacteria (Auto) (Negative) SARS-CoV-2, RNA, NAAT NEGATIVE (NEGATIVE) 05/25/23 05/25/23 Range/Units 15:09 15:09 WBC 19.94 H (4.8-10.8) K/ul RBC 4.49 L (4.70-6.10) M/uL Hgb 14.5 (14.0-18.0) g/dl Hct 41.6 L (42.0-52.0) % MCV 92.7 (80.0-100.0) fL MCH 32.3 (25.0-34.0) pg MCHC 34.9 (32.0-36.0) g/dL RDW Std Deviation 42.0 (36.4-46.3) fL RDW Coeff of Chris 12.3 (11.5-14.5) % Plt Count 328 (130-400) K/uL MPV 8.4 L (9.4-12.4) fL Immature Gran % (Auto) 0.8 % Neut % (Auto) 89.8 % Lymph % (Auto) 4.2 % [place] % (Auto) 4.9 % Eos % (Auto) 0.0 % Baso % (Auto) 0.3 % Neut # (Auto) 17.93 H (1.40-6.50) K/uL Lymph # (Auto) 0.84 L (1.20-3.40) K/uL [place] # (Auto) 0.97 H (0.11-0.59) K/uL Eos # (Auto) 0.00 (0.00-0.50) K/uL Baso # (Auto) 0.05 (0.00-0.20) K/uL Immature Gran # (Auto) 0.15 (0.01-0.20) K/uL Sodium 131 L (136-145) mmol/L Potassium 3.9 (3.5-5.1) mmol/L Chloride 99 (98-107) mmol/L Carbon Dioxide 25 (21-32) mmol/L Anion Gap 7 (3-11) BUN 16 (6-23) mg/dl Creatinine 1.00 (0.6-1.4) mg/dl Est Cr Clr Drug Dosing Not Reportable Est GFR ( Amer) 79.2 ml/min Est GFR (Non-Af Amer) 68.3 ml/min BUN/Creatinine Ratio 16.0 (10-20) Glucose 122 H (70-99(Fasting)) mg/dl Lactate (0.4-2.0) mmol/L Calcium 9.2 (8.6-10.3) mg/dl Magnesium 2.0 (1.7-2.4) mg/dl Total Bilirubin 0.8 (0.2-1.0) mg/dl Direct Bilirubin 0.1 (0-0.2) mg/dl AST 18 (13-39) U/L ALT 22 (7-52) U/L Alkaline Phosphatase 69 (34-104) U/L Total Protein 7.6 (6.0-8.3) gm/dl Albumin 3.9 (3.4-5.0) gm/dl Procalcitonin (0-0.5) ng/ml Urine Color Urine Appearance (Clear) Urine pH (4.5-7.5) Ur Specific [place] (1.000-1.030) Urine Protein (Negative) Urine Glucose (UA) (Negative) Urine Ketones (Negative) Urine Blood (Negative) Urine Nitrite (Negative) Urine Bilirubin (Negative) Urine Urobilinogen (Negative) Ur Leukocyte Esterase (Negative) Urine WBC (Auto) (0-5) /hpf Urine RBC (Auto) (0-4) /hpf U Hyaline Cast (Auto) (0-5) /lpf U Epithel Cells (Auto) (0-5) /lpf Urine Bacteria (Auto) (Negative) SARS-CoV-2, RNA, NAAT (NEGATIVE) Diagnostic Findings Chest X-Ray 05/25/23 14:48 XR chest 1V portable HISTORY: 83 years-old Male Sepsis acute sepsis COMPARISON: 04/18/2023 TECHNIQUE: AP view chest FINDINGS: Cardiac silhouette is enlarged. Hiatal hernia. No pneumothorax, pleural effusion, airspace consolidation or pulmonary edema. Emphysema with chronic interstitial coarsening. Degenerative changes of the shoulders and spine. Eventration of the right hemidiaphragm. IMPRESSION: 1. Cardiomegaly without acute process. 2. Hiatal hernia. ACT 112: Negative or not required by law. The above report was generated using voice recognition software. It may contain grammatical, syntax or spelling errors. Electronically signed by: Iam Daniel M.D. 05/25/2023 3:42 PM Scrotum Ultrasound 05/25/23 16:36 Exam(s): US SCROTAL EXAM: US Scrotum CLINICAL HISTORY: Reason for exam: UTI, swollen/pain left testicle. TECHNIQUE: Real-time ultrasound of the scrotum with color Doppler and image documentation. COMPARISON: No relevant prior studies available. FINDINGS: Right testicle: Unremarkable. No mass. No torsion. Left testicle: Hyperemia to the left testicle with complex left hydrocele. Left testicle measures 3.2 x 3.8 x 3.6 cm. No torsion. Epididymides: Enlarged right epididymis with hyperemia. Scrotum: Right scrotum measures 3.2 x 4.2 x 3.0 cm. Small right hydrocele. IMPRESSION: Left epididymitis and orchitis with complex hydrocele. Electronically signed by: Rashel Nobles M.D. 05/25/23 21:39 PM PG Care Time/CCT Total # of Minutes Spent Total Time Spent with Patient: Total time spent is greater than 50% in coordination of care (as documented) at patient's floor/unit and/or counseling patient: Coding Level of Care Code 29780 SUB INP/OBS CARE 3/50MIN Diagnoses UTI (urinary tract infection) N39.0 Epididymitis N45.1 Scrotal swelling N50.89 Benign prostatic hyperplasia (BPH) with urinary urgency N40.1; R39.15 Hyponatremia E87.1 Hypertension I10 Anemia D64.9 Hypercholesterolemia E78.00 CAD (coronary artery disease) I25.10
--- NOTE | 2023-05-26 09:52 | Urology Consultation ---
Date of Consultation May 26, 2023 Assessment & Plan (1) Epididymitis: (2) Sepsis: (3) Scrotal swelling: (4) UTI (urinary tract infection): (5) Urinary retention: Plan Left scrotal swelling and ultrasound findings/labwork raise concern for left epididymoorchitis with concern for sepsis. Final culture results are pending for the urine and blood cultures pending as well, he should be covered with ceftriaxone and doxycycline. I do not appreciate any discrete abscess on exam or ultrasound. I also have low suspicion for Christine's based on exam. For now would recommend continuing antibiotics, supportive care and would hold off any surgical intervention. For the scrotal swelling, he could use ice packs if desired. Would also recommend some gentle scrotal elevation when he is in bed, i.e. elevating scrotum with a balled up washcloth. He has a long history of incomplete bladder emptying and has not been voiding since his Rezum procedure in April,. PVR was >500 cc this morning. For maximal urinary source control, would recommend Luna catheter replacement. Urology will follow along. History of Present Illness Reason for Consultation: Left epididymoorchitis, complex left hydrocele Attending Physician: Naveen Rojo MD History of Present Illness This is an 83-year-old male followed by urology for BPH, urinary retention and urinary urgency. He has had a longstanding history of voiding dysfunction but developed nima urinary retention early in 2022 with 3 L in his bladder. He subsequently managed with an indwelling catheter and then underwent Rezum procedure on 05/04/[address] العلي. Postoperatively, he failed a voiding trial on 05/15 and then again on 05/24/2023. He was started on a regimen of CIC at that time, however developed left-sided scrotal swelling, which prompted him to present to the emergency department on 05/25. Work-up in the emergency department was notable for leukocytosis (19.94 on 05/25 up to 27.6 on 05/26) creatinine was normal at 0.96. He was mildly hyponatremic at 131. Urinalysis was suggestive of infection with 1+ bacteria, positive nitrates, positive leukocyte esterase. Due to the swelling of the scrotum, an ultrasound was performed. I independently reviewed these images from 05/25/2023. Both testicles appear to be in good position with no masses. There is increased blood flow to the left testis. There is a small amount of somewhat dense hydrocele fluid alongside the left testis. There is some hyperemia of the left epididymis. I do not appreciate any overt abscess. Urology was consulted for further evaluation. At the bedside he denies any significant pain but is bothered by the swelling. He felt cold the other night and has had measured fevers since being in the hospital. Blood cultures are pending. Urine culture is demonstrating preliminary positive with gram-negative rods. He has been on ceftriaxone and doxycycline. Allergies Allergy/AdvReac Type Severity Reaction Status Date / Time Penicillins Allergy Severe High Temp Verified 05/25/23 17:44 sulfamethoxazole Allergy Intermediate RASH Verified 05/25/23 17:44 trimethoprim Allergy Intermediate RASH Verified 05/16/23 11:14 streptomycin Allergy Unknown CAN'T Verified 05/25/23 17:44 REMEMBER procaine [From Novocain] AdvReac Intermediate HIGH TEMP Verified 05/16/23 11:14 ciprofloxacin [From Cipro] AdvReac Mild Rash Verified 05/16/23 11:14 Home Medications Medication Instructions Recorded Confirmed Type atenolol 25 mg tablet 25 mg PO QPM 09/29/19 05/25/23 History atorvastatin 10 mg tablet 10 mg PO QPM 09/29/19 05/25/23 History cholecalciferol (vitamin D3) 50 2,000 units PO QPM 09/29/19 05/25/23 History mcg (2,000 unit) tablet levothyroxine 100 mcg tablet 100 mcg PO DAILYBB 09/29/19 05/25/23 History nitroglycerin 0.4 mg sublingual 0.4 mg sublingual Q5M PRN Chest 09/29/19 05/25/23 History tablet Pain aspirin 81 mg tablet,delayed 81 mg PO QPM 10/04/21 05/25/23 History release ferrous sulfate 325 mg (65 mg 325 mg PO QPM 10/04/21 05/25/23 History iron) tablet ascorbic acid (vitamin C) 500 mg 1,000 mg PO DAILY 08/09/22 05/25/23 History tablet vitamin B complex 1 tab PO DAILY 01/25/23 05/25/23 History Patient History Medical History Aortic valve insufficiency Ascending aorta dilatation Benign prostatic hyperplasia (BPH) with urinary urgency CAD (coronary artery disease) follows with Dr. Campos History of kidney stones UTE (hard of hearing) pt is VERY UTE and has great difficulty answering questions over the phone Hypertension Hypothyroidism Mixed conductive and sensorineural hearing loss of right ear with restricted hearing of left ear Surgical History History of lithotripsy History of open reduction and internal fixation (ORIF) procedure left leg History of removal of retained hardware Hx of heart artery stent 10/2001 with 1 stent placed--at [facility] Family History Father Heart disease Social History Smoking Status: Never smoker Second Hand Exposure: No; Do You Dip or Chew Tobacco: No; Hx Alcohol Use: No Hx Substance Use: No Preferred Language: Indonesian Communication Ability: Impaired Communication Ability Comment: very UTE, have to yell [employer] Required: No Beliefs That Will Affect Care: None marital status: Current Living Situation: Alone Current Living Situation Comment: lives independently at [facility] current occupational status: retired Feels Safe at Home: Yes Safety Concerns: Feels Safe At This Time Assistive Devices: Glasses and Hearing Aid - Bilateral Review of Systems Review of Systems: 12 point review of systems negative except for otherwise indicated. Physical Exam Constitutional: well developed and well nourished; no acute distress Eyes: + anicteric sclerae; pupils not irregular Respiratory: normal respiratory effort; no respiratory distress, does not use accessory muscles and no cough Cardiovascular: well perfused Gastrointestinal (Abdomen): Inspection/Auscultation: abdomen normal to inspection; abdomen not distended Musculoskeletal: Extremities: extremities normal to inspection Skin: normal turgor; no rashes and no lesions Neurologic: moves all extremities and awake Psychiatric: Orientation: alert and oriented x 3 Genitourinary: Penis with orthotopic meatus, no discharge or drainage. No inguinal adenopathy or swelling bilaterally. Right hemiscrotum is normal, right testis without masses or tenderness. Left hemiscrotum is swollen to approximately the size of a baseball, skin with some erythema. This is not particularly tender to palpation. No fluctuance appreciated. No crepitus. No lesions of the skin and no discharge/drainage. Results & Data Vital Signs (Past 12 Hours) Vital Signs Temp Pulse Resp BP Pulse Ox O2 Del Method 05/26/23 08:20 37.2 C 66 18 124/74 93 Room Air 05/26/23 05:13 37.1 C 05/26/23 02:00 37.7 C H 05/25/23 23:05 37.7 C H PG Care Time/CCT Total # of Minutes Spent Total Time Spent with Patient: Total time spent is greater than 50% in coordination of care (as documented) at patient's floor/unit and/or counseling patient: Coding Level of Care Code 67580 INT INP/OBS CARE 2/55MIN Diagnoses Epididymitis N45.1 Sepsis A41.9 Scrotal swelling N50.89 UTI (urinary tract infection) N39.0 Urinary retention R33.9
[2023-05-26] MEDS: DOXYCYCLINE HYCLATE 100 MG in DEXTROSE 5% 100 ML IV SCH ×2 (10:31→22:12)
[2023-05-26] MEDS: cefTRIAXone SODIUM 1,000 MG in DEXTROSE 5% 50 ML IV SCH (16:19)
[2023-05-26] MEDS: ASPIRIN 81 MG ECTAB PO SCH (20:29)
[2023-05-26] MEDS: ATENOLOL 25 MG TABLET PO SCH (20:29)
[2023-05-26] MEDS: ENOXAPARIN INJ 40 MG/0.4 ML SYR SQ SCH (20:30)
[2023-05-27] MEDS: LEVOTHYROXINE SODIUM 100 MCG TABLET PO SCH (05:45)
[2023-05-27 07:45] LABS: Hematocrit (blood only) 37.2 % (42.0-52.0); Hemoglobin 12.8 g/dl (14.0-18.0); Mean Corpuscular Hemoglobin 32.2 pg (25.0-34.0); Mean Corpuscular Hgb Conc 34.4 g/dL (32.0-36.0); Mean Corpuscular Volume 93.5 fL (80.0-100.0); Mean Platelet Volume 8.4 fL (9.4-12.4); Platelet Count 288 K/uL (130-400); RDW Coefficient of Variation 12.3 % (11.5-14.5); RDW Standard Deviation 42.5 fL (36.4-46.3); Red Blood Count 3.98 M/uL (4.70-6.10); White Blood Count 24.32 K/ul (4.8-10.8)
--- NOTE | 2023-05-27 07:54 | Hospitalist Progress Note ---
Date of Service May 27, 2023 Assessment & Plan (1) UTI (urinary tract infection): Plan: WBC 19k with fever on admission, source suspected -Has been having ongoing left scrotal/testicle swelling/pain over the past 3 days with increased difficulty straight cath and hematuria -UA appears infected with no hx resistant UTIs, given Rocephin in ER and 1L plasmalyte for dehydration Leukocytosis on admission WBC up to 27.6k with possible slight fever per ER note with reported ongoing L scrotal swelling/pain over the past 3 days with difficulty straight cath and hematuria. Seen recently in Urology office 05/24 for voiding trial and was apparently taught with 16fr coude for [facility] to get through until this upcoming Sunday Exam concerning for epididymitis/orchitis, not sexually active Scrotal US obtained -- Left epididymitis and orchitis with complex hydrocele. Continues on Ceftriaxone IV Added IV Doxycycline given such and coverage for epididymitis/orchitis as below WBC trending down, no further fevers since overnight 05/25-05/26 Blood cultures remain NGTD Urine cx w/ enterobacter, sensitive to Ceftriaxone and will continue for now until blood cultures NGTD x 48 hrs, then can transition to oral to complete course NSS @ 80cc/hr x 500cc for mild dehydration on exam/concentrated urine in olivera Continue olivera Discussed with Dr العلي, possible voiding trial later this week, ?Sunday PT/OT consulted Lovenox SQ for DVT prophylaxis If blood cultures negative, possible dc back to [facility] tomorrow with outpatient f/u for voiding trial (2) Epididymitis: Plan: Scrotal US w/ Left epididymitis and orchitis with complex hydrocele. Urology consulted, messaged Dr Landrum this morning On ceftriaxone, added IV doxy and continued Cx as above Blood cultures pending NGTD at present Olivera placed, continue Elevation/ice packs as tolerated IMPROVING ON EXAM, no evidence for abscess at present (3) Scrotal swelling: Plan: 2nd to above Left scrotal/testicular swelling, erythema, and tenderness with epididymitis/orchitis on scrotal US Abx/Urology consulted as above, now with olivera and to be maintained as above, voiding trial later this week Urology to follow as above, outpt f/u (4) Benign prostatic hyperplasia (BPH) with urinary urgency: Plan: Had voiding trial in office this past week, bladder scan in ER with 108cc Now with olivera and can hold flomax/finasteride Will start finasteride tomorrow, resume flomax tomorrow unless otherwise directed by urology (?hold w/ olivera for meantime) (5) Hyponatremia: Plan: Sodium at 131 , suspected 2nd to dehydration IVF on admission, improved to 132 but slightly dehydrated on exam, additional 500cc NSS to be given today Check TSH w/ AM labs, if normal/Na not improved consider checking urine studies BMP in AM (6) Hypertension: Plan: Stable Continue atenolol (7) Anemia: Plan: Stable -Continue ferrous sulfate hgb around baseline on IVF (8) Hypercholesterolemia: Plan: -Continue statin (9) CAD (coronary artery disease): Plan: -Continue aspirin (10) Urinary retention: Plan: maintain olivera catheter, see above re voiding trial w/ office later this week (11) Sepsis: Plan: concerns for such on admission as above, abx/IVF/urology consult/cx as above IMPROVING ON EXAM, no further fevers, WBC trending down Plan continued inpatient stay f/u blood cultures, consider switching to PO once negative x 48 hours PT/OT consults pending (from [facility]) - per PT note, dc home when medically able and benefit from continued PT while admitted to improve endurance possible dc tomorrow back to [facility] if blood cultures remain negative on PO abx with urology f/u for voiding trial ?mid-week Admission and Anticipated Discharge Date Admission Date: May 25, 2023 Supervising Physician Co-Signing Physician Notes The patient was not seen by me. The chart was reviewed. Case discussed with DUKE Garza. Agree with assessment and plan Subjective Evaluated this morning, doing well. Some decreased appetite last night with antibiotic but improving today. Catheter draining slightly concentrated urine. No fever/chills/chest pain, shortness of breath reported. Seen with Dr العلي, discussed possible olivera removal later this week. Patient inquiring about inpatient vs at [facility] for follow up. Discussed if blood cultures remain negative for tomorrow will possibly seen about dc back to [facility] and can have voiding trial as outpatient. Questions/concerns addressed at this time. Review of Systems Review of Systems: All systems reviewed & are unremarkable except as noted in HPI & below Physical Exam Physical Exam: General: WD/WN male sitting up in bed, NAD, obtained hearing aides for exam HEENT: head normocephalic, atraumatic, mmm, trachea midline Resp: CTA, diminished in the bases, no w/c/r, on room air CV: RRR, faint murmur, no pitting edema/calf tenderness GI +BS, soft/NT olivera in place, concentrated urine draining, no inguinal lymphadenopathy Left testis with significant swelling/erythema (slightly improved), no appreciable abscess, no evidence for forneires MSK/Neuro: no focal deficits, no slurred speech, answering questions appropriately Psych; Alert, oriented to person/place/time Results & Data Results & Data Vital Signs (Past 12 Hours) Vital Signs Temp Pulse Resp BP Pulse Ox O2 Del Method 05/26/23 20:43 36.9 C 73 18 104/58 L 93 Room Air Laboratory Results 05/27/23 05/27/23 05/27/23 Range/Units 07:17 07:17 07:17 WBC 24.32 H (4.8-10.8) K/ul RBC 3.98 L (4.70-6.10) M/uL Hgb 12.8 L (14.0-18.0) g/dl Hct 37.2 L (42.0-52.0) % MCV 93.5 (80.0-100.0) fL MCH 32.2 (25.0-34.0) pg MCHC 34.4 (32.0-36.0) g/dL RDW Std Deviation 42.5 (36.4-46.3) fL RDW Coeff of Crhis 12.3 (11.5-14.5) % Plt Count 288 (130-400) K/uL MPV 8.4 L (9.4-12.4) fL Immature Gran % (Auto) 1.1 % Neut % (Auto) 86.4 % Lymph % (Auto) 6.6 % [place] % (Auto) 5.4 % Eos % (Auto) 0.3 % Baso % (Auto) 0.2 % Neut # (Auto) 21.00 H (1.40-6.50) K/uL Lymph # (Auto) 1.61 (1.20-3.40) K/uL [place] # (Auto) 1.31 H (0.11-0.59) K/uL Eos # (Auto) 0.07 (0.00-0.50) K/uL Baso # (Auto) 0.06 (0.00-0.20) K/uL Immature Gran # (Auto) 0.27 H (0.01-0.20) K/uL Sodium 132 L (136-145) mmol/L Potassium 3.9 (3.5-5.1) mmol/L Chloride 100 (98-107) mmol/L Carbon Dioxide 26 (21-32) mmol/L Anion Gap 6 (3-11) BUN 15 (6-23) mg/dl Creatinine 0.92 (0.6-1.4) mg/dl Est Cr Clr Drug Dosing 57.5 ml/min Est GFR ( Amer) 87.6 ml/min Est GFR (Non-Af Amer) 75.6 ml/min BUN/Creatinine Ratio 16.3 (10-20) Glucose 97 (70-99(Fasting)) mg/dl Calcium 8.5 L (8.6-10.3) mg/dl RPR Pending PG Care Time/CCT Total # of Minutes Spent Total Time Spent with Patient: Total time spent is greater than 50% in coordination of care (as documented) at patient's floor/unit and/or counseling patient: Coding Level of Care Code 66814 SUB INP/OBS CARE 3/50MIN Diagnoses UTI (urinary tract infection) N39.0 Epididymitis N45.1 Scrotal swelling N50.89 Benign prostatic hyperplasia (BPH) with urinary urgency N40.1; R39.15 Hyponatremia E87.1 Hypertension I10 Anemia D64.9 Hypercholesterolemia E78.00 CAD (coronary artery disease) I25.10 Urinary retention R33.9 Sepsis A41.9
[2023-05-27 07:59] LABS: BUN Creatinine Ratio 16.3 (10-20); Calcium 8.5 mg/dl (8.6-10.3); Creatinine Clr Calc Pharmacy 57.5 ml/min; Est GFR (African American) 87.6 ml/min; Est GFR (Non-African American) 75.6 ml/min; Potassium 3.9 mmol/L (3.5-5.1)
[2023-05-27 08:20] LABS: Basophils # (auto) 0.06 K/uL (0.00-0.20); Basophils % (auto) 0.2 %; Eosinophils # (auto) 0.07 K/uL (0.00-0.50); Eosinophils % (auto) 0.3 %; Immature Granulocytes # (auto) 0.27 K/uL (0.01-0.20); Immature Granulocytes % (auto) 1.1 %; Lymphocytes # (auto) 1.61 K/uL (1.20-3.40); Lymphocytes % (auto) 6.6 %; Monocytes # (auto) 1.31 K/uL (0.11-0.59); Monocytes % (auto) 5.4 %; Neutrophils % (auto) 86.4 %
[2023-05-27] MEDS ORDERED: SODIUM CHLORIDE 0.9% 500 ML IV SCH (08:30)
[2023-05-27] MEDS: DOXYCYCLINE HYCLATE 100 MG in DEXTROSE 5% 100 ML IV SCH ×2 (08:41→20:44)
--- NOTE | 2023-05-27 09:28 | Urology Progress Note ---
Date of Service May 27, 2023 Assessment & Plan (1) Urinary retention: (2) Epididymitis: Plan Patient has been struggling with urinary retention for the past 4 months Status post Rezum on 05/04/2023still has been unable to void but I hope to see further improvement over the next few weeks with resumption of some normal voiding Epididymitis is notableEnterobacter growing from the urine Has been covered with initial ceftriaxone followed by doxycycline Will likely need to taper to an appropriate agent for prolonged canbyeqqp51 days minimum Possible voiding trial next week as an outpatient presuming continued improvement in his overall condition Admission and Anticipated Discharge Date Admission Date: May 25, 2023 Subjective Subjectively reports that he feels quite well He denies any significant pain in his left testis despite the swelling He reports that the catheter has not been posing any difficulties and he has no subjective complaints today Physical Exam Physical Exam: Very swollen left testis without palpable abscess No skin breakdown Some erythema, no crepitus Luna catheter in place draining clear urine Results & Data Vital Signs (Past 12 Hours) Vital Signs Temp Pulse Resp BP Pulse Ox O2 Del Method 05/27/23 07:49 37.3 C 59 L 17 112/64 93 Room Air PG Care Time/CCT Total # of Minutes Spent Total Time Spent with Patient: Total time spent is greater than 50% in coordination of care (as documented) at patient's floor/unit and/or counseling patient: Coding Level of Care Code 92772 SUB INP/OBS CARE 2/35MIN Diagnoses Urinary retention R33.9 Epididymitis N45.1
[2023-05-27] MEDS: cefTRIAXone SODIUM 1,000 MG in DEXTROSE 5% 50 ML IV SCH (16:03)
[2023-05-27] MEDS: ATENOLOL 25 MG TABLET PO SCH (20:37)
[2023-05-27] MEDS: ENOXAPARIN INJ 40 MG/0.4 ML SYR SQ SCH (20:38)
[2023-05-27] MEDS: ASPIRIN 81 MG ECTAB PO SCH (20:38)
[2023-05-28] MEDS: LEVOTHYROXINE SODIUM 100 MCG TABLET PO SCH (05:38)
[2023-05-28] MEDS: FINASTERIDE 5 MG TAB PO SCH (08:00)
--- NOTE | 2023-05-28 08:28 | Hospitalist Progress Note ---
Date of Service May 28, 2023 Assessment & Plan (1) UTI (urinary tract infection): Plan: WBC 19k with fever on admission, source suspected -Has been having ongoing left scrotal/testicle swelling/pain over the past 3 days with increased difficulty straight cath and hematuria -UA appears infected with no hx resistant UTIs, given Rocephin in ER and 1L plasmalyte for dehydration Leukocytosis on admission WBC up to 27.6k with possible slight fever per ER note with reported ongoing L scrotal swelling/pain over the past 3 days with difficulty straight cath and hematuria. Seen recently in Urology office 05/24 for voiding trial and was apparently taught with 16fr coude for [facility] to get through until this upcoming Sunday Exam concerning for epididymitis/orchitis, not sexually active Scrotal US obtained -- Left epididymitis and orchitis with complex hydrocele. Blood cultures ngtd x 48 hours While initially placed on Ceftriaxone/Doxy WBC trending down -->discussed w/ pharmacy and enterobacter/sensitivites not to be trusted, inducible ampC/resistance/etc and decision to switch to Ertapenem 1gm daily and will plan to complete 10-14 course (first day starting with first dose Ertapenem) Olivera to remain in place -- possible voiding trial later this week per Dr العلي, but will continue olivera for now given recent issues PT/OT consults -- ok to dc home when medically stable Lovenox SQ for DVT proph while inpatient (2) Epididymitis: Plan: Scrotal US w/ Left epididymitis and orchitis with complex hydrocele. Urology consulted, messaged Dr Landrum this morning On ceftriaxone, added IV doxy and continued Cx as above Blood cultures pending NGTD at present Olivear placed, continue Elevation/ice packs as tolerated IMPROVING ON EXAM, no evidence for abscess at present (3) Scrotal swelling: Plan: 2nd to above Left scrotal/testicular swelling, erythema, and tenderness with epididymitis/o rchitis on scrotal US Abx/Urology consulted as above, now with olivera and to be maintained as above, voiding trial later this week Urology to follow as above, outpt f/u (4) Benign prostatic hyperplasia (BPH) with urinary urgency: Plan: Had voiding trial in office this past week, bladder scan in ER with 108cc Now with olivera and can hold flomax/finasteride Started finasteride today, resume flomax tomorrow unless otherwise directed by urology (?hold w/ olivera for meantime) (5) Hyponatremia: Plan: Sodium at 131 , suspect 2nd to dehydration IVF on admission, additional 500cc NSS yesterday TSH wnl Repeat BMP 132 but asymptomatic from such, encouraged PO intake Check serum osm/urine osm/urine Na BMP in AM (6) Hypertension: Plan: Stable 125/72 Continue atenolol (7) Anemia: Plan: Stable -Continue ferrous sulfate hgb around baseline on IVF and improved on repeat (8) Hypercholesterolemia: Plan: -Continue statin (9) CAD (coronary artery disease): Plan: -Continue aspirin (10) Urinary retention: Plan: maintain olivera catheter, see above re voiding trial w/ office later this week (11) Sepsis: Plan: concerns for such on admission as above, abx/IVF/urology consult/cx as above IMPROVING ON EXAM, no further fevers, WBC trending down abx changed as above Plan continued inpatient stay, changed to admission blood cultures remain NGTD WBC trending down Abx changed to Ertapenem and plan 10day IV course. CM assisting to arrange for hopeful dc back to [facility] for tomorrow Admission and Anticipated Discharge Date Admission Date: May 25, 2023 Supervising Physician Co-Signing Physician Notes The patient was not seen by me. The chart was reviewed. Case discussed with DUKE Garza. Agree with assessment and plan Subjective Eval this morning, reports clear mind, improvement daily. Decreased swelling but still present. Olivera intact and draining. Appetite ok. Discussed IV abx change and will need to see about CM arranging IV abx and coordination with [facility] to see if any specific accommodations need made. Will plan to monitor overnight/arrange iV abx but if able to arrange consider discharge tomorrow. Physical Exam Physical Exam: General: WD/WN male sitting up in bed, NAD, obtained hearing aides for exam HEENT: head normocephalic, atraumatic, mmm, trachea midline Resp: CTA, diminished in the bases, no w/c/r, on room air CV: RRR, faint murmur, no pitting edema/calf tenderness GI +BS, soft/NT olivera in place, concentrated urine draining, no inguinal lymphadenopathy Left testis with significant swelling/erythema (IMPROVING), no appreciable abscess, no evidence for forneires MSK/Neuro: no focal deficits, no slurred speech, answering questions appropriately Psych; Alert, oriented to person/place/time Results & Data Results & Data Vital Signs (Past 12 Hours) Vital Signs Temp Pulse Resp BP Pulse Ox O2 Del Method 05/28/23 07:42 37.4 C 59 L 18 125/72 94 Room Air 05/27/23 20:33 37.1 C 66 18 126/76 96 Room Air Laboratory Results 05/28/23 05/28/23 05/28/23 Range/Units 09:51 08:03 08:03 WBC (4.8-10.8) K/ul RBC (4.70-6.10) M/uL Hgb (14.0-18.0) g/dl Hct (42.0-52.0) % MCV (80.0-100.0) fL MCH (25.0-34.0) pg MCHC (32.0-36.0) g/dL RDW Std Deviation (36.4-46.3) fL RDW Coeff of Chris (11.5-14.5) % Plt Count (130-400) K/uL MPV (9.4-12.4) fL Immature Gran % (Auto) % Neut % (Auto) % Lymph % (Auto) % [place] % (Auto) % Eos % (Auto) % Baso % (Auto) % Neut # (Auto) (1.40-6.50) K/uL Lymph # (Auto) (1.20-3.40) K/uL [place] # (Auto) (0.11-0.59) K/uL Eos # (Auto) (0.00-0.50) K/uL Baso # (Auto) (0.00-0.20) K/uL Immature Gran # (Auto) (0.01-0.20) K/uL Sodium 132 L (136-145) mmol/L Potassium 3.7 (3.5-5.1) mmol/L Chloride 102 (98-107) mmol/L Carbon Dioxide 24 (21-32) mmol/L Anion Gap 6 (3-11) BUN 14 (6-23) mg/dl Creatinine 0.77 (0.6-1.4) mg/dl Est Cr Clr Drug Dosing 68.7 ml/min Est GFR ( Amer) 95.9 ml/min Est GFR (Non-Af Amer) 82.7 ml/min BUN/Creatinine Ratio 18.2 (10-20) Glucose 94 (70-99(Fasting)) mg/dl Osmolality 274 L (280-300) mOsm/kg Calcium 8.4 L (8.6-10.3) mg/dl TSH 1.212 (0.300-4.500) uIu/ml 05/28/23 Range/Units 08:03 WBC 14.92 H (4.8-10.8) K/ul RBC 4.17 L (4.70-6.10) M/uL Hgb 13.5 L (14.0-18.0) g/dl Hct 37.5 L (42.0-52.0) % MCV 89.9 (80.0-100.0) fL MCH 32.4 (25.0-34.0) pg MCHC 36.0 (32.0-36.0) g/dL RDW Std Deviation 39.8 (36.4-46.3) fL RDW Coeff of [place] 12.2 (11.5-14.5) % Plt Count 281 (130-400) K/uL MPV 8.8 L (9.4-12.4) fL Immature Gran % (Auto) 0.8 % Neut % (Auto) 80.9 % Lymph % (Auto) 10.4 % [place] % (Auto) 6.4 % Eos % (Auto) 1.0 % Baso % (Auto) 0.5 % Neut # (Auto) 12.08 H (1.40-6.50) K/uL Lymph # (Auto) 1.55 (1.20-3.40) K/uL [place] # (Auto) 0.95 H (0.11-0.59) K/uL Eos # (Auto) 0.15 (0.00-0.50) K/uL Baso # (Auto) 0.07 (0.00-0.20) K/uL Immature Gran # (Auto) 0.12 (0.01-0.20) K/uL Sodium (136-145) mmol/L Potassium (3.5-5.1) mmol/L Chloride (98-107) mmol/L Carbon Dioxide (21-32) mmol/L Anion Gap (3-11) BUN (6-23) mg/dl Creatinine (0.6-1.4) mg/dl Est Cr Clr Drug Dosing ml/min Est GFR ( Amer) ml/min Est GFR (Non-Af Amer) ml/min BUN/Creatinine Ratio (10-20) Glucose (70-99(Fasting)) mg/dl Osmolality (280-300) mOsm/kg Calcium (8.6-10.3) mg/dl TSH (0.300-4.500) uIu/ml PG Care Time/CCT Total # of Minutes Spent Total Time Spent with Patient: Total time spent is greater than 50% in coordination of care (as documented) at patient's floor/unit and/or counseling patient: Coding Level of Care Code 26281 SUB INP/OBS CARE 3/50MIN Diagnoses UTI (urinary tract infection) N39.0 Epididymitis N45.1 Scrotal swelling N50.89 Benign prostatic hyperplasia (BPH) with urinary urgency N40.1; R39.15 Hyponatremia E87.1 Hypertension I10 Anemia D64.9 Hypercholesterolemia E78.00 CAD (coronary artery disease) I25.10 Urinary retention R33.9 Sepsis A41.9
[2023-05-28 08:46] LABS: Basophils # (auto) 0.07 K/uL (0.00-0.20); Basophils % (auto) 0.5 %; Eosinophils # (auto) 0.15 K/uL (0.00-0.50); Hematocrit (blood only) 37.5 % (42.0-52.0); Hemoglobin 13.5 g/dl (14.0-18.0); Immature Granulocytes # (auto) 0.12 K/uL (0.01-0.20); Immature Granulocytes % (auto) 0.8 %; Lymphocytes # (auto) 1.55 K/uL (1.20-3.40); Lymphocytes % (auto) 10.4 %; Mean Corpuscular Hemoglobin 32.4 pg (25.0-34.0); Mean Corpuscular Volume 89.9 fL (80.0-100.0); Mean Platelet Volume 8.8 fL (9.4-12.4); Monocytes # (auto) 0.95 K/uL (0.11-0.59); Monocytes % (auto) 6.4 %; Neutrophils # (auto) 12.08 K/uL (1.40-6.50); Neutrophils % (auto) 80.9 %; Platelet Count 281 K/uL (130-400); RDW Coefficient of Variation 12.2 % (11.5-14.5); RDW Standard Deviation 39.8 fL (36.4-46.3); Red Blood Count 4.17 M/uL (4.70-6.10); White Blood Count 14.92 K/ul (4.8-10.8)
[2023-05-28 08:51] LABS: BUN Creatinine Ratio 18.2 (10-20); Calcium 8.4 mg/dl (8.6-10.3); Creatinine Clr Calc Pharmacy 68.7 ml/min; Est GFR (African American) 95.9 ml/min; Est GFR (Non-African American) 82.7 ml/min; Potassium 3.7 mmol/L (3.5-5.1)
--- NOTE | 2023-05-28 09:47 | Urology Progress Note ---
Date of Service May 28, 2023 Assessment & Plan (1) Urinary retention: (2) Epididymitis: (3) Scrotal swelling: Plan: Status post Rezum on 05/04/2023, urinary retention, epididymitis Afebrile overnight Labs show - creatinine 0.77, WBC downtrending to 14.92 Epididymitis is notableEnterobacter growing from the urine Initially treated with ceftriaxone and doxycycline --> now on Ertapenem Recommend continue with appropriate antibiotic for prolonged [id number] days minimum Maintain Luna catheter Possible voiding trial next week as an outpatient presuming continued improvement in his overall condition will follow peripherally, contact our service with any additional questions/concerns Admission and Anticipated Discharge Date Admission Date: May 25, 2023 Subjective Subjectively doing well Denies any significant scrotal discomfort Tolerating Luna catheter Luna draining appropriately with clear yellow urine Denies fever, chills, nausea or vomiting Review of Systems Constitutional: as per Subjective / HPI Gastrointestinal: as per Subjective / HPI Genitourinary: + as per Subjective / HPI Physical Exam Physical Exam: General: no acute distress HEENT: Normocephalic Pulmonary: Nonlabored respirations Abdomen: Nondistended Extremities: Moves all 4 spontaneously Neuro: No gross deficits Psych: alert and oriented : Left testis notably swollen without palpable abscess; some erythema, no skin breakdown, no crepitus Luna catheter in place draining clear urine Results & Data Vital Signs (Past 12 Hours) Vital Signs Temp Pulse Resp BP Pulse Ox O2 Del Method 05/28/23 07:42 37.4 C 59 L 18 125/72 94 Room Air PG Care Time/CCT Total # of Minutes Spent Total Time Spent with Patient: Total time spent is greater than 50% in coordination of care (as documented) at patient's floor/unit and/or counseling patient: Coding Level of Care Code 43378 SUB INP/OBS CARE 1/25MIN Diagnoses Urinary retention R33.9 Epididymitis N45.1 Scrotal swelling N50.89
[2023-05-28] MEDS: ERTAPENEM SODIUM 1,000 MG in SYRINGE 0 ML IV SCH (09:59)
--- NOTE | 2023-05-28 12:42 | Communication Note ---
Date of Service: May 28, 2023 Will plan for 14 days ertapenem. CM checking if [facility] able to accept back tomorrow
[2023-05-28] MEDS: ATENOLOL 25 MG TABLET PO SCH (20:08)
[2023-05-28] MEDS: ASPIRIN 81 MG ECTAB PO SCH (20:09)
[2023-05-28] MEDS: ENOXAPARIN INJ 40 MG/0.4 ML SYR SQ SCH (23:28)
[2023-05-29] MEDS: LEVOTHYROXINE SODIUM 100 MCG TABLET PO SCH (06:32)
[2023-05-29] MEDS: FINASTERIDE 5 MG TAB PO SCH (07:50)
[2023-05-29] MEDS: ERTAPENEM SODIUM 1,000 MG in SYRINGE 0 ML IV SCH (07:50)
[2023-05-29 08:06] LABS: Hematocrit (blood only) 40.6 % (42.0-52.0); Hemoglobin 14.1 g/dl (14.0-18.0); Mean Corpuscular Hemoglobin 32.3 pg (25.0-34.0); Mean Corpuscular Hgb Conc 34.7 g/dL (32.0-36.0); Mean Corpuscular Volume 93.1 fL (80.0-100.0); Mean Platelet Volume 8.3 fL (9.4-12.4); Platelet Count 316 K/uL (130-400); RDW Coefficient of Variation 12.4 % (11.5-14.5); RDW Standard Deviation 42.1 fL (36.4-46.3); Red Blood Count 4.36 M/uL (4.70-6.10); White Blood Count 10.73 K/ul (4.8-10.8)
[2023-05-29 09:15] LABS: BUN Creatinine Ratio 17.2 (10-20); Calcium 8.9 mg/dl (8.6-10.3); Creatinine Clr Calc Pharmacy 60.8 ml/min; Est GFR (African American) 91.2 ml/min; Est GFR (Non-African American) 78.7 ml/min; Magnesium 2.2 mg/dl (1.7-2.4); Potassium 4.4 mmol/L (3.5-5.1)
--- NOTE | 2023-05-29 11:41 | Discharge Summary ---
Date of Service May 29, 2023 Admission HPI Per Admitting Provider Az is an 83 year old male with a PMH significant for BPH with chronic urinary retention (Straight cath's), HTN, CAD, hypothyroidism, anemia who presented to the [facility] ED on 05/25 from [facility] due to difficulty cathing and UTI symptoms. In the ED vitals were stable. Labs were significant for a leukocytosis of 19 with left shift of 17, sodium of 131, and UA concerning for UTI. Chest xray showed cardiomegaly without acute process. Prior to admission the patient was given a dose of Ceftriaxone. At the time of the exam the patient was resting in bed in no acute distress. He states that he has been having left scrotal/testicular pain for the past 3 days. This pain has made straight cathing himself difficult due to the pain. He has been very cold but has not taken his temperature. He denies recent fever, chills, chest pain, SOB, abd pain, nausea, vomiting, diarrhea, dysuria, melena, diarrhea, LE swelling, and recent trauma. He has noted hematuria over the past 3 days when using his catheters. He has no other complaints at this time. We discussed code status, he wishes to be a full code and for his POA, David Mark to make medical decisions for him if he cannot make them himself. Please refer to Dr. Raymond's attestation for any changes to the treatment plan Discharge Data Allergies Allergy/AdvReac Type Severity Reaction Status Date / Time Penicillins Allergy Severe High Temp Verified 05/25/23 17:44 sulfamethoxazole Allergy Intermediate RASH Verified 05/25/23 17:44 trimethoprim Allergy Intermediate RASH Verified 05/16/23 11:14 streptomycin Allergy Unknown CAN'T Verified 05/25/23 17:44 REMEMBER procaine [From Novocain] AdvReac Intermediate HIGH TEMP Verified 05/16/23 11:14 ciprofloxacin [From Cipro] AdvReac Mild Rash Verified 05/16/23 11:14 Consultations 05/25/23 16:07 ED Decision to Admit Stat 05/26/23 08:09 Consult Urology Routine Ordered Studies 05/25/23 16:36 US scrotum/testicle Urgent Hospital Course (1) UTI (urinary tract infection): WBC 19k with fever on admission, source suspected -Has been having ongoing left scrotal/testicle swelling/pain over the past 3 day s with increased difficulty straight cath and hematuria -UA appears infected with no hx resistant UTIs, given Rocephin in ER and 1L plasmalyte for dehydration Leukocytosis on admission WBC up to 27.6k with possible slight fever per ER note with reported ongoing L scrotal swelling/pain over the past 3 days with difficulty straight cath and hematuria. Seen recently in Urology office 05/24 for voiding trial and was apparently taught with 16fr coude for CIC to get through until this upcoming Sunday Exam concerning for epididymitis/orchitis, not sexually active Scrotal US obtained -- Left epididymitis and orchitis with complex hydrocele. Blood cultures ngtd x 48 hours While initially placed on Ceftriaxone/Doxy WBC trending down -->discussed w/ pharmacy and enterobacter/sensitivites not to be trusted, inducible ampC/resistance/etc and decision to switch to Ertapenem 1gm daily and will plan to complete 10-14 course (first day starting with first dose Ertapenem) Olivera to remain in place -- possible voiding trial later this week per Dr العلي, but will continue olivera for now given recent issues PT/OT consults -- ok to dc home when medically stable Lovenox SQ for DVT proph while inpatient (2) Epididymitis: Scrotal US w/ Left epididymitis and orchitis with complex hydrocele. Urology consulted, messaged Dr Landrum this morning On ceftriaxone, added IV doxy and continued Cx as above Blood cultures pending NGTD at present Olivera placed, continue Elevation/ice packs as tolerated IMPROVING ON EXAM, no evidence for abscess at present (3) Scrotal swellinnd to above Left scrotal/testicular swelling, erythema, and tenderness with epididymitis/orchitis on scrotal US Abx/Urology consulted as above, now with olivera and to be maintained as above, voiding trial later this week Urology to follow as above, outpt f/u (4) Benign prostatic hyperplasia (BPH) with urinary urgency: Had voiding trial in office this past week, bladder scan in ER with 108cc Now with olivera and can hold flomax/finasteride Started finasteride today, resume flomax tomorrow unless otherwise directed by urology (?hold w/ olivera for meantime) (5) Hyponatremia: Sodium at 131 , suspect 2nd to dehydration IVF on admission, additional 500cc NSS yesterday TSH wnl Repeat BMP 132 but asymptomatic from such, encouraged PO intake Check serum osm/urine osm/urine Na BMP in AM (6) Hypertension: Stable 125/72 Continue atenolol (7) Anemia: Stable -Continue ferrous sulfate hgb around baseline on IVF and improved on repeat (8) Hypercholesterolemia: -Continue statin (9) CAD (coronary artery disease): -Continue aspirin (10) Urinary retention: maintain olivera catheter, see above re voiding trial w/ office later this week (11) Sepsis: concerns for such on admission as above, abx/IVF/urology consult/cx as above IMPROVING ON EXAM, no further fevers, WBC trending down abx changed as above Plan continued inpatient stay, changed to admission blood cultures remain NGTD WBC trending down Abx changed to Ertapenem and plan 10day IV course. CM assisting to arrange for hopeful dc back to [facility] for tomorrow Discharge Plan Discharge Items Patient Disposition: Transfer [facility] Fac Reason For Visit: UTI,EPIDIDYMITIS,ORCHITIS Discharge Diagnosis: 1. Urinary tract infection 2nd Enterobacter 2. Left-sided Epididymitis & Orchitis - resolving 3. Incomplete Bladder Emptying/retention s/p olivera placement 05/26/23 4. Sepsis 2nd to #1, #2 - resolved 5. BPH 6. CAD 7. Hyponatremia - improved; presenting level 131; discharge level 134 Activity: Resume your previous activity Non-emergency contact: Primary Care Provider and Urologist Call non-emergency contact if: you have any medication questions, your symptoms worsen and you have a fever Follow-up/Referrals: Cristino Landrum MD [Physician] - (Dr Landrum or any of his partners - 1 week - voiding trial, f/u of orchitis/epididymitis ) [facility] [Primary Care Provider] - Diet: Heart Healthy Addtl Attending Provider Instructions: Mr Lezama was hospitalized for UTI symptoms and urinary retention. He also complained of left testicular swelling. U/S of the scrotum confirmed the presence of epididymitis & orchitis of the left testicle. Urine culture grew enterobacter. Blood cultures were negative. A olivera catheter was placed due to the urinary retention. [facility] [place] in consult. Antibiotics, supportive care, and olivera were advised. f/u with [facility] in the clinic in 7-10 days was recommended for trial of void/olivera management. Patient was placed on IV ertapenem and will complete a total course of 14 days of such. He received 2 doses while here (05/28 and 05/29). He has a RUE midline in place for his IV antibiotics. Recommendations - 1. IV ertapenem - 1gm IV daily x 12 days, first dose 05/30/23. Give via RUE midline IV. 2. Scrotal support for the orchitis on left side. Avoid boxer shorts; briefs or similar are best. Can use ice packs as needed for swelling/pain of the left scrotum. 3. Lactinex x 2 weeks. 4. Keep olivera in place. f/u with [facility] in 7-10 days for olivera management/trial of void. 5. CBC, BMP in 3 days for stability. Results to medical lab scientist. It was our pleasure to care for Mr Lezama at [facility]! -Dr Guevara Pending Studies at Discharge: No Stand-Alone Forms: My [facility] Skilled Items Patient informed of condition?: Yes DNR: No Discharge Level of Care: Skilled Communicable Disease: No Discharge Prognosis: Stable Lines: Mid-Line Urinary Catheter: Yes Medications and DC Order Prescriptions: New finasteride 5 mg Tablet 5 mg PO QAM Qty: 30 2RF ertapenem 1 gram recon soln 1 g IV DAILY 12 Days Qty: 12 0RF Rx Instructions: first dose 05/30/23. Give via right arm Midline. Lactobacillus acidophilus Tablet,Chewable 2 tab PO BID 14 Days Qty: 56 0RF Continued cholecalciferol (vitamin D3) 2,000 unit tablet 2,000 units PO QPM nitroglycerin 0.4 mg tablet, sublingual 0.4 mg SL Q5M PRN (Reason: Chest Pain) atenolol 25 mg tablet 25 mg PO QPM atorvastatin 10 mg tablet 10 mg PO QPM levothyroxine 100 mcg tablet 100 mcg PO DAILYBB Rx Instructions: 100 mcg PO take one tablet daily on empty stomach with a a full glass of water, wait 30 minutes to eat, drink or take other medications; ascorbic acid (vitamin C) 500 mg tablet 1,000 mg PO DAILY ferrous sulfate 325 mg (65 mg iron) tablet 325 mg PO QPM aspirin 81 mg tablet,delayed release (DR/EC) 81 mg PO QPM vitamin B complex Tablet 1 tab PO DAILY Discharge Orders: Discharge Order (Routine); Ordered 05/29/23 Ordered By: Rad Erwin/Other Patient Handouts: Treating Epididymitis and Orchitis, What are Epididymitis and Orchitis? Admission Data Admit Date/Time: 05/28/23 10:52 Attending Provider: Rad Guevara Admit Provider: Rad Raymond Primary Care Provider: Noemi Arguelles Other Providers: Rad Raymond ; Cristino Landrum Coding Diagnoses UTI (urinary tract infection) N39.0 Epididymitis N45.1 Scrotal swelling N50.89 Benign prostatic hyperplasia (BPH) with urinary urgency N40.1; R39.15 Hyponatremia E87.1 Hypertension I10 Anemia D64.9 Hypercholesterolemia E78.00 CAD (coronary artery disease) I25.10 Urinary retention R33.9 Sepsis A41.9
== END 2023-05-29 16:25 | DRG 872 ==
LOC: ED 14:41 → 3N 14:41 → SUATTDRO 16:12 → 3N 17:06 → SUATTDRO 05-28 10:52